=== PATIENT | male | born 1950 | race Caucasian/White ===

== ENCOUNTER → 2017-03-28 10:11 | Day surgery (SDC) | payer BC, MEDICAID ==
[~2017-03-28 10:11] MED LIST: Atropine SYRINGE* 0.1 MG/ML 10 ML SYRINGE (1 MG) ONE; Diazepam TAB(*) 5 MG ONE; Heparin 2 UNITS/ML IVPREMIX* 3,000 ML IV ONE; Iohexol 350 (CONTRAST) 200 ML MDV IV ONE; Lidocaine 1% INJ* 10 MG/ML 30 ML SDV ONE; Midazolam* 1 MG/ML 10 ML VIAL (10 MG) ONE; NS 0.9% 1000 ML* 1,000 ML IV SCH; diPHENhydraMINE PO* 25 MG ONE; fentaNYL* 50 MCG/ML 2 ML VIAL (100 MCG VIAL) ONE
[2017-03-28 15:44] VITALS: BP 117/79
--- NOTE | 2017-03-29 04:14 | CATH ---
CC: Dr. Mayelin Man * CARDIAC CATHETERIZATION REPORT: DATE OF PROCEDURE: 03/28/17 - [facility] CATH PROCEDURE: Cardiac catheterization including coronary angiography. INDICATION: Mitral regurgitation. HISTORY: The patient is a 66-year-old gentleman with a history of mitral valve disease. He is status post mitral valve repair and now has severe mitral regurgitation. There is consideration of mitral valve replacement. Cardiac catheterization was recommended prior to the surgery. DESCRIPTION OF PROCEDURE: The patient was brought to the cardiac catheterization lab in a fasting state. Informed consent had been obtained prior to the procedure. All labs were reviewed. The patient was placed supine on the catheterization table. Both femoral areas were cleaned and draped in the usual fashion. 1% lidocaine was used for local anesthesia. The right femoral artery was entered by a modified Seldinger technique and a 6-[place]izen [place] sheath introducer was placed. The patient underwent coronary angiography using a 6-[place]izen [place] JL4 catheter and a 6-[place] JR4 catheter. At the end of the procedure, all sheaths and catheters were removed. The patient tolerated the procedure well with no complications. A total of 30 cc of Omnipaque dye was used. A total of 0.8 minutes of fluoro time was used. FINDINGS: Left main artery: The left main was normal in size. It bifurcated into the LAD and circumflex. There was no evidence of stenosis. Left anterior descending artery: The LAD was normal in size. It gave off 1 diagonal branch. There was no evidence of stenosis. Left circumflex artery: The circumflex artery was normal in size and gave off 1 obtuse marginal branch. There was no evidence of stenosis. Right coronary artery: The RCA was a large dominant vessel, gave off the PDA and posterolateral branches. There was no evidence of stenosis. IMPRESSION: Normal coronary arteries. RECOMMENDATION: The patient will continue evaluation for mitral valve surgery. [id number]/[facility] #: [id number] [facility]
== END | disposition home or self-care (01) ==
LOC: CHICATH 10:11
PROVIDERS: ATTEND Specialist
DX: I08.1 Rheumatic disorders of both mitral and tricuspid valves (principal); I48.2 Chronic atrial fibrillation; I48.92 Unspecified atrial flutter; Z95.0 Presence of cardiac pacemaker; I42.9 Cardiomyopathy, unspecified; I44.7 Left bundle-branch block, unspecified; Z79.01 Long term (current) use of anticoagulants; R06.00 Dyspnea, unspecified; G47.33 Obstructive sleep apnea (adult) (pediatric); E78.5 Hyperlipidemia, unspecified; R07.9 Chest pain, unspecified
CPT/HCPCS: 93005; 93454; A9270-GY; C1887; J0461; J1644; J2250; J3010

== ENCOUNTER 2017-09-11 15:40 | Emergency (ER) | payer BC, MEDICAID ==
--- NOTE | 2017-09-11 16:51 | RAD ---
INDICATION: Shortness of breath. Previous cardiac valve surgery. Ablation for atrial fibrillation. COMPARISON: April 09, 2015 TECHNIQUE: Dual energy PA and routine lateral views of the chest were obtained. REPORT: Consolidation at the LEFT lung base may represent atelectasis or pneumonia. Minimal linear atelectasis along the RIGHT minor fissure. Potential small LEFT pleural effusion. Negative for pneumothorax. RIGHT ventricular and coronary sinus level pacemaker leads. Cardiomegaly. Median sternotomy wires and postsurgical change of probable mitral valve surgery. Vascular clip at the AP window. Unremarkable central pulmonary vasculature. IMPRESSION: 1. Consolidation at the LEFT lung base may represent atelectasis or pneumonia. 2. Cardiomegaly. No compelling evidence for pulmonary edema.
[2017-09-11] MEDS ORDERED: Vancomycin(*) 1,000 MG in NS 0.9% 250 ML* 250 ML IVPB ONE (17:13)
[2017-09-11] MEDS ORDERED: NS 0.9% 1000 ML* 1,000 ML IV ONE (17:13)
[2017-09-11] MEDS ORDERED: Piperacillin/Tazobac ADVAN(*) 3.375 GM in NS 0.9% 100 ML* 100 ML IVPB ONE (17:13)
[2017-09-11 17:34] LABS: ABS Basophils 0.1 10^3/ul (0-0.2); ABS Eosinophils 0.8 10^3/ul (0-0.6); ABS Lymphocytes 1.9 10^3/ul (1.0-4.8); ABS Monocytes 0.9 10^3/ul (0-0.8); ABS Neutrophils 4.6 10^3/ul (1.5-7.7); ABS Nucleated RBC 0 10^3/ul; Eosinophil % 9.2 % (0-6); Hematocrit 27 % (42-52); Hemoglobin 9.1 g/dl (14.0-18.0); Lymphocyte % 22.8 % (25-47); Mean Corpuscular HGB Conc 34 g/dl (31-36); Mean Corpuscular Hemoglobin 30 pg (27-31); Mean Corpuscular Volume 89 fL (80-94); Mean Platelet Volume 6.9 um3 (7.4-10.4); Nucleated Red Blood Cells % 0; Platelet Count 427 10^3/ul (150-450); Red Blood Count 3.02 10^6/ul (4.0-5.4); Red Cell Distribution Width 14 % (10.5-15); White Blood Count 8.3 10^3/ul (3.5-10.8)
[2017-09-11 17:52] LABS: EGFR Non-African American 68.4 (>60)
[2017-09-11 19:10] VITALS: BP 119/80
[2017-09-11] MEDS ORDERED: Ondansetron INJ* 2 MG/ML VIAL IV PRN (19:15)
[2017-09-11] MEDS ORDERED: Acetaminophen TAB* 325 MG PO PRN (19:15)
[2017-09-11] MEDS ORDERED: Morphine INJ* 2 MG/ML 1 ML CARPUJECT IV PRN (19:15)
[2017-09-11] MEDS ORDERED: Heparin VIAL(*) 5000 UNITS/ML VIAL (FIVE THOUSAND) SUBCUT SCH (22:00)
--- NOTE | 2017-09-11 22:33 | CONS ---
CC: Dr. Murillo; Dr. Man * CONSULTATION REPORT: DATE OF CONSULT: 09/11/17 - EMERGENCY DEPT PRIMARY CARE PROVIDER: Dr. Murillo. ATTENDING PHYSICIAN WHILE IN THE HOSPITAL: Quan Hale MD (report being dictated by Rafita Del Toro NP). REASON FOR MEDICAL CONSULTATION: Evaluation of cough and possible admission. HISTORY OF PRESENT ILLNESS: Mr. Berger is a 67-year-old male patient who underwent a mitral and tricuspid valve repair at the [facility] just about 2 weeks ago on 08/29/17. He subsequently has come in today because he has been complaining over the last 48 hours progressive worsening nonproductive cough. He is not having any chest pain. The only chest pain he has when he takes a deep breath or he coughs. He does have some incisional type chest discomfort. He denied having any fevers or chills associated with this. He denied having any vomiting or diarrhea. He also does carry a history of atrial fibrillation. He has a nonischemic cardiomyopathy which he follows with Dr. Man. He called the [facility], they instructed him to come into the nearest emergency department to be evaluated. He says he is feeling well now. He says he just has this dry cough. He was offered admission, but was felt that he would like to go home. We were asked to evaluate in consult. He again denied any fevers. No chills. He is evaluated down here and because of his complexity, we were initially asked to evaluate for admission. PAST MEDICAL HISTORY: Significant for: 1. Chronic atrial fibrillation. 2. Nonischemic cardiomyopathy. 3. Hypothyroidism. 4. Psoriasis. 5. Left bundle-branch block. 6. Mitral regurgitation. 7. JAGJIT. PAST SURGICAL HISTORY: He just recently had a tricuspid and mitral valve repair. He has had foot surgery. He has had the Bi-V pacemaker placement. MEDICATIONS: His home meds include: 1. Pravachol 40 mg p.o. daily. 2. Carvedilol 12.5 mg p.o. b.i.d. 3. Aspirin 81 mg daily. 4. Warfarin 5 mg Tuesday, Tuesday, Tuesday, and Tuesday. 5. Warfarin 2.5 mg Tuesday, Tuesday, . 6. Lasix 20 mg p.o. b.i.d. 7. Potassium 20 mEq p.o. daily. New medications: 1. Doxycycline 100 mg p.o. b.i.d. for 7 days. 2. Vantin 200 mg p.o. every 12 hours for 7 days. ALLERGIES TO MEDICATIONS: Include AMIODARONE and AZITHROMYCIN. FAMILY HISTORY: Says both his parents are alive, they are healthy to his knowledge. They are living in their 90s. SOCIAL HISTORY: He does not smoke. He does not drink. 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 REVIEW OF SYSTEMS: There is no documented fever. Denies having any significant weight change. There is no double vision. He denies having any ear discharge. There is no rhinorrhea. There is no sore throat. No thyroid enlargement. Denies having any chest pain with the exception when he coughs, takes a deep breath. Denies having any abdominal pain. No dysuria. No frequency. No seizure. No loss of consciousness. No pruritus, no skin ulcerations. Review of 14 systems completed, all others negative. PHYSICAL EXAMINATION: Vital Signs: Blood pressure 119/80, pulse 85, respirations 16, O2 sat 95%, temperature 97.8. General: At this time, Mr. Berger is a 67-year- old male patient. He is sitting on the ED stretcher. He does not appear to be in any acute distress. He appears to be well nourished, well developed. HEENT: Head: Atraumatic, normocephalic. Eyes: EOMs are intact. Sclerae anicteric, not pale. Neck: Supple. Throat: Oral mucosa appears to be moist. No oropharyngeal erythema. Heart: Sounds S1, S2. Regular rate and rhythm. No murmurs, rubs, or gallops. Lungs are diminished in the left base. He had equal diaphragmatic expansion. Abdomen was soft. It was flat. It was nontender. The bowel sounds were present. Extremities: Pulses were 2+ throughout. He is moving all 4 extremities with 5/5 strength. Neurologically, he is awake, he is alert, oriented x3. He had no gross focal deficits. Skin: He does have a midline substernal incision which is open to air, clean, dry and intact. LABORATORY DATA/DIAGNOSTIC STUDIES: Today, WBC of 8.3, RBC of 3.02, hemoglobin 9.1, hematocrit 27, platelet count of 427. Sodium 135, potassium 4, chloride of 98, bicarb of 31, BUN 19, creatinine 1.08, glucose 94, lactate 0.8, calcium 8.4. Total bilirubin 0.4, AST 24, ALT 34, alk phos 62. Troponin 0.27. Albumin is 3.2. He had the chest x-ray obtained today. I did review with my attending, Dr. Hale. It showed consolidation at the left lung base, may represent atelectasis, pneumonia, cardiomegaly, no compelling evidence for edema. He had EKG obtained today. It shows atrial flutter, AFib that is ventricularly paced rhythm with a rate of 85. Old medical records were reviewed. ASSESSMENT AND PLAN: Mr. Berger is a 67-year-old male patient was recently hospitalized for a mitral valve and tricuspid valve repair. On evaluation here today, he was complaining of cough. There is concern for possible pneumonia. We were asked to evaluate in consult. Recommendations at this point are: 1. Cough, concern for pneumonia. At this point, he is not tachypneic, he is not hypoxic. In addition to this, he is having a dry cough. It is nonproductive. He also has no fever or white count documented. We were asked to evaluate in consult for this admission. However, the patient was requesting discharge home, which I think is appropriate. I do think he should be put on Vantin and doxycycline. If he does not improve on these medications, then certainly I would recommend him coming back to the ER. He has followup with his primary on Tuesday. I have instructed him to take these medications for 7 days. Return for any fevers, chills, nausea, vomiting, abdominal pain, chest pain, or any shortness of breath and I discussed this with my attending, Dr. Hale, he was in agreement. He also personally evaluated the patient as well. 2. Cardiomyopathy. Continue meds as prescribed. 3. Hyperlipidemia. Continue statin therapy. 4. Atrial fibrillation. Continue with his warfarin. 5. Issues to return to the hospital include, but are not limited to chest pain , shortness of breath, fevers, chills, nausea, vomiting or any other worsening symptoms. 6. He is to have a heart healthy diet. TIME SPENT: On the discharge was approximately 60 minutes, greater than half the time was spent [id number] with the patient obtaining my history and physical, the other half time was spent going over the plan of care with the patient, implementing the plan of care. I did discuss the plan of care with my attending, Dr. Hale; he is in agreement. RAFITA DEL TORO NP [id number]/[facility] #: [id number] [facility]
--- NOTE | 2017-09-12 12:20 | ED ---
Bernadine Salazar Edward, scribed for Sky Martino MD on 09/11/17 at 1710 . Shortness of Breath - HPI Summary HPI Summary: 67 y/o male presents to the ED c/o intermittent cough and SOB. Cough is not productive. Denies fevers. SOB aggravated with deep breaths. Pt was released September 07 2017 from [facility]; called his surgeon there and told to go to the ED. Pt had 2 leaking valves repaired. Pt dye operator is Mayelin Man. - History of Current Complaint Chief Complaint: EDShortnessOfBreath Time Seen by Provider: 09/11/17 16:34 Hx Obtained From: Patient Onset/Duration: Lasting Days, Still Present Timing: Intermittent Episodes Lasting: - cough Aggrevating Factors: Deep Breaths Associated Signs & Symptoms: Cough (Nonproductive) - Allergy/Home Medications Allergies/Adverse Reactions: Allergies Allergy/AdvReac Type Severity Reaction Status Date / Time amiodarone Allergy Unknown Verified 09/11/17 16:23 Reaction Details azithromycin Allergy Unknown Verified 09/11/17 16:23 Reaction Details Home Medications: Home Medications Aspirin EC TAB* [Ecotrin EC Low Dose 81 MG*] 81 mg PO DAILY 09/11/17 [History Confirmed 09/11/17] Carvedilol TAB* [Coreg TAB*] 12.5 mg PO BID 09/11/17 [History Confirmed 09/11/17 ] Furosemide TAB* [Lasix TAB*] 20 mg PO BID 09/11/17 [History Confirmed 09/11/17] Potassium Chlor TAB* [Klor Con ER TAB*] 20 meq PO DAILY 09/11/17 [History Confirmed 09/11/17] Pravastatin (NF) [Pravachol (NF)] 40 mg PO QPM 09/11/17 [History Confirmed 09/11] Warfarin TAB(*) [Coumadin TAB(*)] 2.5 mg PO SUTUTH 09/11/17 [History Confirmed 09/11/17] Warfarin TAB(*) [Coumadin TAB(*)] 5 mg PO MOWEFRSA 09/11/17 [History Confirmed 09/11/17] PMH/Surg Hx/FS Hx/Imm Hx Previously Healthy: No Endocrine/Hematology History: Denies: Hx Diabetes Cardiovascular History: Reports: Hx Pacemaker/ICD, Other Cardiovascular Problems /Disorders - Leaky valves - Surgical History Surgery Procedure, Year, and Place: Leaky valve repair September 07 2017 [facility]. pacemaker-2001 cardiac oblation for a-fib Infectious Disease History: No Infectious Disease History: Denies: Traveled Outside the [place] in Last 30 Days - Family History Known Family History: Positive: Unknown - Social History Alcohol Use: None Hx Substance Use: No Substance Use Type: Reports: None Hx Tobacco Use: No Smoking Status (MU): Never Smoked Tobacco Review of Systems Constitutional: Negative Eyes: Negative ENT: Negative Cardiovascular: Negative Positive: Shortness Of Breath, Cough Gastrointestinal: Negative Genitourinary: Negative Musculoskeletal: Negative Skin: Negative Neurological: Negative Psychological: Normal All Other Systems Reviewed And Are Negative: Yes Physical Exam - Summary Physical Exam Summary: GENERAL: ~Patient is a well developed and nourished M who is lying comfortable in the stretcher. ~Patient is not in any acute respiratory distress. HEAD AND FACE: Normocephalic EYES: PERRLA, EOMI x 2. EARS: Hearing grossly intact. MOUTH: Oropharynx within normal limits. NECK: Supple, trachea is midline, no adenopathy, no JVD, no carotid bruit. CHEST: Symmetric, no tenderness at palpation LUNGS: Mild crackles on the L side. CVS: Regular rate and rhythm, S1 and S2 present, no murmurs or gallops appreciated. ABDOMEN: Soft, non-tender. Bowel sounds are normal. No abdominal abnormal pulsations. EXTREMITIES: Full ROM in all major joints, no edema, no cyanosis or clubbing. NEURO: Alert and oriented x 3. No acute neurological deficits. Speech is normal and follows commands. SKIN: Dry and warm. Scar over chest is clean, dry and intact. Triage Information Reviewed: Yes Vital Signs On Initial Exam: Initial Vitals Temp Pulse Resp BP Pulse Ox 97.8 F 86 18 118/60 96 09/11/17 15:47 09/11/17 15:47 09/11/17 15:47 09/11/17 15:47 09/11/17 15:47 Vital Signs Reviewed: Yes Diagnostics - Vital Signs Vital Signs Temp Pulse Resp BP Pulse Ox 09/11/17 16:52 83 25 108/71 93 09/11/17 16:23 81 24 108/64 93 09/11/17 16:21 82 23 94 09/11/17 15:47 97.8 F 86 18 118/60 96 - Laboratory Result Diagrams: 09/11/17 17:23 09/11/17 17:23 Lab Statement: Any lab studies that have been ordered have been reviewed, and results considered in the medical decision making process. - Radiology CXR Xray Interpretation: Positive (See Comments) - 1. Consolidation at the LEFT lung base may represent atelectasis or pneumonia. 2. Cardiomegaly. No compelling evidence for pulmonary edema. Radiology Interpretation Completed By: Radiologist - EKG 1 EKG Interpretation: AFIB @ 85 BPM. V-Paced. Course/Dx - Course Assessment/Plan: 67 y/o male recently had open heart surgery directed here by cardiothoracic surgeon for his cough. Workup remarkable for PNA on the l side, troponin elevated to 0.27 most likely secondary to recent heart surgery. Given that the pt was recently admitted, he will be treated for hospital acquired pna with Vancomycin, zosyn. Pt presented to Dr. Grossman who accepted the pt for admission. - Diagnoses Provider Diagnoses: Hospital-acquired pneumonia - Physician Notifications Discussed Care of Patient With: Shashank Grossman Time Discussed With Above Provider: 18:32 Instructed by Provider To: Admit As Inpatient Discharge - Sign-Out/Discharge Documenting (check all that apply): Discharge/Admit/Transfer - Discharge Plan Condition: Stable Disposition: ADMITTED TO [facility] Referrals: Paul Murillo MD [Primary Care Provider] - The documentation as recorded by the Bernadine deal Edward accurately reflects the service I personally performed and the decisions made by , Sky Martino MD.
== END 2017-09-11 20:17 | disposition short-term general hospital (02) ==
LOC: ED 15:40
DX: J18.9 Pneumonia, unspecified organism (principal); Y95 Nosocomial condition; Z95.810 Presence of automatic (implantable) cardiac defibrillator; Z79.82 Long term (current) use of aspirin; Z79.01 Long term (current) use of anticoagulants
CPT/HCPCS: 36415; 71046; 80053; 83605; 84484; 85025; 86141; 87040; 93005; 96360; 96374; 96375; 99283; J2543; J3370